=== PATIENT | male | born 1995 | race Caucasian/White ===

== ENCOUNTER 2020-09-13 20:59 | Emergency (ER) | payer OTHER, SELFPAY ==
--- NOTE | ~2020-09-13 | CT_ITS ---
EXAMINATION: CT thoracic lumbar wo con DATE: 09/14/2020 00:13 INDICATION: Back pain, numbness TECHNIQUE: Computed tomography (CT) of the thoracic and lumbar spine was performed with 75 mL Omnipaq ue-350 intravenous contrast. Automated exposure control and iterative reconstruction technique were e mployed. Exam dose: 2072.91 mGy-cm total exam DLP. Thoracic spine COMPARISON: None FINDINGS: There is mild dextroscoliosis of the thoracic spine and mild levoscoliosis of the lumbar sp ine. No fracture or bone destruction of the thoracic or lumbar spine. Thoracic and lumbar vertebral inters paces appear preserved. The thoracic and lumbar pedicles are intact. No spondylolysis or spondylolist hesis listhesis. The sacroiliac joints appear normal. IMPRESSION: Mild scoliosis Reviewed, dictated and finalized at [facility]. Reviewed, dictated and finalized at [facility]. IMPRESSION: Mild scoliosis
--- NOTE | ~2020-09-13 | CT_ITS ---
EXAMINATION: CT cervical spine wo con DATE: 09/14/2020 00:12 INDICATION: Neck pain, back pain TECHNIQUE: Computed tomography (CT) of the cervical spine was performed without intravenous contrast. Automated exposure control and iterative reconstruction technique were employed. Exam dose: 535.25 mGy-cm total exam DLP. COMPARISON: None FINDINGS: There is reversal of cervical curvature which may be due to positioning and/or muscle spasm . No fracture or dislocation or locked facet or prevertebral soft tissue swelling is detected.. IMPRESSION: Reversal of cervical curvature; otherwise unremarkable examination Reviewed, dictated and finalized at [facility]. Reviewed, dictated and finalized at [facility].
[2020-09-13 21:56] VITALS: BP 181/102; PULSE 82; RESP 18; TEMP 36.9; O2SAT 100
[2020-09-13 23:51] VITALS: PULSE 86; RESP 19; O2SAT 100
[2020-09-14] VITALS (10 sets, daily range): BP systolic 125–131; BP diastolic 57–75; PULSE 69–90; RESP 12–23; O2SAT 95–100
--- NOTE | 2020-09-14 00:03 | PC.NURSE ---
Patient in CT.
--- NOTE | 2020-09-14 01:14 | ED.GENADULT ---
HPI - General Adult General Chief complaint: Unspecified Stated complaint: twisted back - legs going numb, left arm numb Time Seen by Provider: 09/13/20 23:47 History of Present Illness HPI narrative: Patient 24-year-old gentleman who presents the emergency department with chief complaint of back pain and leg numbness. Patient reports that he was at work and opened a door that required a firm pulling. Patient states as he pulled the door he felt a pop in his back and then had numbness down both legs patient also reports he had sharp pain at the same time. The patient states that subsequently the pain has improved the numbness is improved as well and is only present currently whenever he bends in certain positions. Patient denies bowel or bladder dysfunction denies any foot drop reports that he is able to drive a vehicle like normal and has no problems with control of his muscles. Related Data Allergies Allergy/AdvReac Type Severity Reaction Status Date / Time No Known Allergies Allergy Verified 09/13/20 21:59 Review of Systems Review of Systems: A 10 system review of systems was completed on the patient and is negative except for what is stated in the HPI. Nursing and ancillary documentation was reviewed. [facility] Social History Social History Gender identity (if verbalized by the patient): Male Sexual Orientation (if Verbalized by the Patient): Straight or Heterosexual Exam Narrative: GENERAL: Well-appearing, well-nourished, and in no acute distress. HEAD: Normocephalic, atraumatic. EYES: PERRLA and EOMI. ENT: Nares clear, no rhinorrhea or epistaxis. Mucous membranes moist. NECK: Supple. CHEST: Clear to auscultation. No respiratory distress. HEART: Regular rate and rhythm. No murmur heard. Normal peripheral pulses. ABDOMEN: Soft, nontender, nondistended, normal active bowel sounds. EXTREMITIES: Normal range of motion. No edema. SKIN: Warm, dry, no rash. NEURO: No focal deficits. Alert and oriented x3. PSYCH: Normal mood and affect. Course Course Emergency Course: CT C-spine and TL spine showed no evidence of fracture there was evidence of degenerative changes present Vital Signs Vital signs: Vital Signs Temperature 36.9 C 09/13/20 21:56 Pulse Rate 82 08/01/21 21:56 Respiratory Rate 18 09/13/20 21:56 Blood Pressure 181/102 H 09/13/20 21:56 Pulse Oximetry 100 09/13/20 21:56 Temperature 36.9 C 09/13/20 21:56 Pulse Rate 82 09/13/20 21:56 Respiratory Rate 18 09/13/20 21:56 Blood Pressure 181/102 H 09/13/20 21:56 Pulse Oximetry 100 09/13/20 21:56 Medical Decision Making Vital Signs Vital Signs: Vital Signs Temperature 36.9 C 09/13/20 21:56 Pulse Rate 82 09/13/20 21:56 Respiratory Rate 18 09/13/20 21:56 Blood Pressure 181/102 H 09/13/20 21:56 Pulse Oximetry 100 09/13/20 21:56 Temperature 36.9 C 09/13/20 21:56 Pulse Rate 82 09/13/20 21:56 Respiratory Rate 18 09/13/20 21:56 Blood Pressure 181/102 H 09/13/20 21:56 Pulse Oximetry 100 09/13/20 21:56 Discharge Plan Discharge Clinical Impression: Acute lumbar radiculopathy Patient Disposition: Home, Self-Care Condition: Stable Instructions: Antibiotic Form, Lumbar Radiculopathy (ED) Prescriptions: New cyclobenzaprine 10 mg tablet 10 mg PO TID PRN (Reason: muscle spasm) Qty: 21 RF: 0 methylprednisolone [Medrol ([place])] 4 mg tablets,dose pack See Rx Instructions .ROUTE .COMPLEX Qty: 21 RF: 0 Follow-up/Referrals: Noe Mcnair MD [Physician] - PHYSICIAN NOT ON STAFF,NONSTAFF [Primary Care Provider] - Time of Disposition: :17
== END 2020-09-14 02:00 | disposition home or self-care (01) ==
PROVIDERS: Emergency Provider Emergency Medicine
DX: M54.16 Radiculopathy, lumbar region (principal)
CPT/HCPCS: 72125; 72128; 72131; 99284